=== PATIENT | female | born 1960 | race Two or more races ===

== ENCOUNTER → 2024-10-01 | Outpatient (CLI) | payer BC ==
[~2024-10-01] VITALS: Ht 154.9 cm; Wt 81.6 kg
[2024-10-01] MEDS: REGADENOSON 0.4 MG/5 ML SYRG IV ONE ×2 (09:53→10:00)
--- NOTE | 2024-10-01 11:24 | DVHSR ---
APPROVED REPORT Exam: Nuclear Stress Test BMI: 0 Stress Test Details HR Max Heart Rate (APMHR): 157 bpm Target HR (85% APMHR): 133 bpm BP ECG Stress ECG Conclusion Review of the myocardial perfusion images demonstrated a small area of mild intensity reduced radiotr acer uptake in the LV apex. It is more intense in the resting images. This is suggestive of apical t hinning artifact. Otherwise, there is homogeneous radiotracer uptake throughout the rest of the left ventricular myocardium. Left ventricular volumes are normal. Ejection fraction is normal and is es timated at 81%. There is no significant transient ischemic dilatation. 1. Low risk nuclear myocardial perfusion scan. 2. Normal left ventricular systolic function. NM EXAM: Myocardial Perfusion REST/STRESS Imaging Protocol: Rest Tc-99m/Stress Tc-99m 1 day Resting Data Rest SPECT myocardial perfusion imaging was performed in supine position 60 minutes following the int ravenous injection of 10.3 mCi of Tc-99m Sestamibi. Time of rest injection: 0840 Time of rest imagin Administration Route: IV Administration Site: Right AC Pharmacologic Stress Pharmacologic stress test was performed by injecting Regadenoson 0.4 mg IV push followed by the intra venous injection of 34 mCi of Tc-99m Sestamibi. Time of stress injection: 0955 Time of stress imagin Administration Route: IV Administration Site: Right AC Gated Stress SPECT was performed 60 minutes after stress injection. The images were gated to evaluate regional wall motion and calculate left ventricular ejection fracti on. Stress only was performed in the Supine position. Nuclear Conclusion ECG Findings: negative for ischemia Clinical Findings: negative for ischemia Nuclear Findings: negative for ischemia Exercise Capacity: not assessed Left Ventricular Function: normal Risk Study: low Review of the myocardial perfusion images demonstrated a small area of mild intensity reduced radiotr acer uptake in the LV apex. It is more intense in the resting images. This is suggestive of apical t hinning artifact. Otherwise, there is homogeneous radiotracer uptake throughout the rest of the left ventricular myocardium. Left ventricular volumes are normal. Ejection fraction is normal and is es timated at 81%. There is no significant transient ischemic dilatation. 1. Low risk nuclear myocardial perfusion scan. 2. Normal left ventricular systolic function.
== END | disposition home or self-care (01) ==
LOC: XYW 08:02
PROVIDERS: ATTEND Specialist
DX: I11.0 Hypertensive heart disease with heart failure (principal); I50.9 Heart failure, unspecified; E78.5 Hyperlipidemia, unspecified
CPT/HCPCS: 78452; 93017; A9500; J2785